=== PATIENT | female | born 1955 | race Caucasian/White ===

== ENCOUNTER 2020-10-19 17:27 | Emergency (ER) | payer MEDICARE ==
[~2020-10-19] VITALS: Ht 154.9 cm; Wt 70.0 kg
--- NOTE | 2020-10-19 17:42 | EKG ---
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
--- NOTE | 2020-10-19 18:00 | RAD ---
Single view chest dated 10/19/2020. No comparison available. Clinical data indication: Chest pain. FINDINGS: Single upright portable exam performed. Heart and mediastinal contours are within normal limits. Patc hy and linear perihilar opacities, left greater than right. No consolidation or definite pleural effu jose manuel. No pneumothorax. IMPRESSION: Patchy and linear perihilar opacities, nonspecific. Consider acute or chronic bronchial inflammatory process. Viral pneumonitis not excluded. Electronically signed by: Reyes Carmona MD (10/19/2020 5:58 PM) [id number]
[2020-10-19 18:06] LABS: BASO % 0 % (0-3); EOS # 0.1 x10^3/uL (0.0-0.7); EOS % 4 % (0-3); HEMATOCRIT 37.6 % (36.0-47.0); HEMOGLOBIN 12.5 g/dL (12.0-15.5); LYMPH # 0.7 x10^3/uL (1.0-4.8); LYMPH % 17 % (24-48); MEAN CORPUSCULAR HEMOGLOBIN 30 pg (25-35); MEAN CORPUSCULAR HGB CONC 33 g/dL (31-37); MEAN CORPUSCULAR VOLUME 89 fL (79-100); MONO # 0.4 x10^3/uL (0.0-1.1); MONO % 11 % (0-9); NEUT # 2.7 x10^3uL (1.8-7.7); NEUT % 68 % (31-73); PLATELET COUNT 46 x10^3/uL (140-400); RED BLOOD COUNT 4.21 x10^6/uL (3.50-5.40); RED CELL DISTRIBUTION WIDTH 14.9 % (11.5-14.5); WHITE BLOOD COUNT 3.9 x10^3/uL (4.0-11.0)
--- NOTE | 2020-10-19 18:15 | PHYS DOC ---
Adult General Chief Complaint Chief Complaint: CHEST PAIN HPI HPI Patient is a 65-year-old female with a known past medical history of deafness presented emergency department onset of chest pain. Patient states that approximate 10 minutes prior to arrival she had new onset of left anterior chest pain rating to the left neck and left shoulder. States that she has similar pain yesterday that spontaneously resolved. Denies any associated nausea, vomiting, fever, chills, shortness of breath, cough. Denies any recent sick contacts or travel. Denies any history of similar symptoms. No known aggravating or alleviating factors Review of Systems Review of Systems Constitutional: Denies fever or chills [] Eyes: Denies change in visual acuity, redness, or eye pain [] HENT: Denies nasal congestion or sore throat [] Respiratory: Denies cough or shortness of breath [] Cardiovascular: No additional information not addressed in HPI [] GI: Denies abdominal pain, nausea, vomiting, bloody stools or diarrhea [] : Denies dysuria or hematuria [] Musculoskeletal: Denies back pain or joint pain [] Integument: Denies rash or skin lesions [] Neurologic: Denies headache, focal weakness or sensory changes [] Endocrine: Denies polyuria or polydipsia [] All other systems were reviewed and found to be within normal limits, except as documented in this note. Physical Exam Physical Exam Constitutional: Well developed, well nourished, no acute distress, non-toxic appearance. [] HENT: Normocephalic, atraumatic, bilateral external ears normal, oropharynx moist, no oral exudates, nose normal. [] Eyes: PERRLA, EOMI, conjunctiva normal, no discharge. [] Neck: Normal range of motion, no tenderness, supple, no stridor. [] Cardiovascular:Heart rate regular rhythm, no murmur [] Lungs & Thorax: Bilateral breath sounds clear to auscultation [] Abdomen: Bowel sounds normal, soft, no tenderness, no masses, no pulsatile masses. [] Skin: Warm, dry, no erythema, no rash. [] Back: No tenderness, no CVA tenderness. [] Extremities: No tenderness, no cyanosis, no clubbing, ROM intact, no edema. [] Neurologic: Alert and oriented X 3, normal motor function, normal sensory function, no focal deficits noted. [] Psychologic: Affect normal, judgement normal, mood normal. [] EKG EKG Inverted T waves and ST depression in 1, aVL and some ST depression in aVR. Anterior leads without any ST changes. QRS and intervals normal. Radiology/Procedures Radiology/Procedures [] Heart Score Risk Factors: Risk Factors: DM, Current or recent (<one month) smoker, HTN, HLP, family history of CAD, obesity. Risk Scores: Risk Factors: DM, Current or recent (<one month) smoker, HTN, HLP, family history of CAD, obesity. Course & Med Decision Making Course & Med Decision Making Pertinent Labs and Imaging studies reviewed. (See chart for details) 65F presented with new onset of left anterior chest pain. Uncertain past medical history but history of deafness is raise concern for possible cardiovascular disease. At this time will obtain full ACS work-up. Of note on initial EKG the patient was noted to have some ST depressions in the septal leads but there is no clear criteria for STEMI activation at this time. Dragon Disclaimer Dragon Disclaimer This electronic medical record was generated, in whole or in part, using a voice recognition dictation system. Departure Departure: Referrals: NOLA MOJICA DO (PCP) BOBBY BUTT MD Oct 19, 2020 18:15
[2020-10-19 18:17] LABS: CALCIUM 8.4 mg/dL (8.5-10.1); POTASSIUM 3.9 mmol/L (3.5-5.1)
[2020-10-19 18:23] LABS: ALBUMIN/GLOBULIN RATIO 0.6 (1.0-1.7); MAGNESIUM 1.5 mg/dL (1.8-2.4); TOTAL BILIRUBIN 1.5 mg/dL (0.2-1.0); TOTAL PROTEIN 7.9 g/dL (6.4-8.2)
[2020-10-19 18:30] VITALS: BP 153/72
[2020-10-19] MEDS ORDERED: IOHEXOL 350 MG/ML 100 ML VIAL. IV ONE (19:45)
[2020-10-19] MEDS ORDERED: CONTRAST GIVEN. MC PRN (20:15)
--- NOTE | 2020-10-19 20:15 | RAD ---
Exam: CT of chest with contrast INDICATION: Shortness of breath, elevated d-dimer TECHNIQUE: Sequential axial images through the chest obtained following the administration of 75 mL o f Omni 350 IV contrast. Sagittal and coronal reformatted images were reconstructed from the axial debbie a and reviewed. 3-D reformatted images were reconstructed from the axial data and reviewed. Comparisons: Chest x-ray same day FINDINGS: Visual is portions of the thyroid are unremarkable. No enlarged mediastinal lymph nodes are identifie d. Heart size is normal. No pericardial effusion. Mild coronary artery calcifications. Thoracic aorta english s a normal course and caliber. Pulmonary artery is not enlarged. No pulmonary embolus identified with in the main, lobar or segmental pulmonary arteries. Airways are patent. Strandy opacities at lung bases bilaterally. There is mosaic attenuation of the l ungs likely related to air trapping. No consolidation or pneumothorax. There is a small left pleural effusion. Cirrhotic morphology of the liver. Spleen is enlarged. No suspicious osseous lesions or acute fractures. IMPRESSION: 1. No pulmonary embolus identified within the main, lobar or segmental pulmonary arteries. 2. Small left pleural effusion. 3. Linear bandlike opacity at lung bases likely representing atelectasis. 4. Cirrhotic morphology of the liver, and splenomegaly Exposure: One or more of the following in the visualized dose reduction techniques were utilized for this examination: 1. Automated exposure control 2. Adjustment of the MA and/or KV according to patient size 3. Use of iterative of reconstructive technique Electronically signed by: Mauricio Caicedo MD (10/19/2020 8:13 PM) [id number]
[2020-10-19 22:03] LABS: PLT ESTIMATE DECREASED (ADEQUATE)
[2020-10-19] MEDS ORDERED: HEPARIN for IV BOLUS 10,000 UNIT/10 ML VIAL. IV ONE (22:15)
[2020-10-19] MEDS ORDERED: HEPARIN 25,000UTS/250ML PREMIX 250 ML IV PRN (22:15)
[2020-10-19] MEDS ORDERED: HEPARIN for IV BOLUS 10,000 UNIT/10 ML VIAL. IV PRN (22:15)
--- NOTE | 2020-10-19 23:50 | PHYS DOC ---
Past History Past Medical History: CAD Additional Past Surgical Histo: Bladder Alcohol Use: None Adult General Chief Complaint Chief Complaint: CHEST PAIN HPI HPI Patient is a 65-year-old female who presented to the emergency department with left-sided chest pain radiating to her left arm approximately 10 to 15-minutes prior to coming to the emergency department. Care was transferred to ct at checkout. Patient denies any chest pain, shortness of breath, abdominal pain, nausea, vomiting. Denies any dyspnea on exertion, orthopnea, PND or edema. On introduction of myself to patient has not Dr. She stated she was currently having no discomfort. Review of Systems Review of Systems Constitutional: Denies fever or chills [] Eyes: Denies change in visual acuity, redness, or eye pain [] HENT: Denies nasal congestion or sore throat [] Respiratory: Denies cough or shortness of breath [] Cardiovascular: No additional information not addressed in HPI [] GI: Denies abdominal pain, nausea, vomiting, bloody stools or diarrhea [] : Denies dysuria or hematuria [] Musculoskeletal: Denies back pain or joint pain [] Integument: Denies rash or skin lesions [] Neurologic: Denies headache, focal weakness or sensory changes [] Endocrine: Denies polyuria or polydipsia [] All other systems were reviewed and found to be within normal limits, except as documented in this note. Current Medications Current Medications Current Medications Medications (Trade) Dose Ordered Sig/Shila Start Time Stop Time Status Last Admin Dose Admin Heparin Sodium (Porcine) (Heparin Sodium) 1,750 unit PRN Q6HRS PRN 10/19/20 22:15 Heparin Sodium/ Dextrose 250 ml @ 8.4 mls/hr CONT PRN 10/19/20 22:15 10/19/20 23:04 8.4 MLS/HR Info (Do NOT chart on this entry -- for MONITORING) 1 each PRN DAILY PRN 10/19/20 20:15 10/21/20 20:14 Iohexol (Omnipaque 350 Mg/ml) 100 ml 1X ONCE 10/19/20 19:45 10/19/20 20:04 DC 10/19/20 20:09 100 ML Allergies Allergies Allergies Coded Allergies Type Severity Reaction Last Updated Verified No Known Drug Allergies 10/19/20 No Physical Exam Physical Exam Constitutional: Well developed, well nourished, no acute distress, non-toxic appearance. [] HENT: Normocephalic, atraumatic, bilateral external ears normal, oropharynx moist, no oral exudates, nose normal. [] Eyes: conjunctiva normal, Neck: Normal range of motion, Cardiovascular:Heart rate regular rhythm, no murmur [] Lungs & Thorax: Bilateral breath sounds clear to auscultation [] Abdomen: soft, no tenderness, no masses, no pulsatile masses. [] Skin: Warm, dry, no erythema, no rash. [] Back: No tenderness, no CVA tenderness. [] Extremities: No tenderness, no cyanosis, no clubbing, ROM intact, no edema. [] Neurologic: Alert and oriented X 3, normal motor function, normal sensory function, no focal deficits noted. [] Psychologic: Affect normal, judgement normal, mood normal. [] Current Patient Data Vital Signs Vital Signs Date Time Temp Pulse Resp B/P (MAP) Pulse Ox O2 Delivery O2 Flow Rate FiO2 10/19/20 18:30 94 24 153/72 (99) 96 Room Air 10/19/20 17:30 98.0 Lab Results Laboratory Tests Test 10/19/20 17:58 10/19/20 20:45 White Blood Count 3.9 x10^3/uL (4.0-11.0) L Red Blood Count 4.21 x10^6/uL (3.50-5.40) Hemoglobin 12.5 g/dL (12.0-15.5) Hematocrit 37.6 % (36.0-47.0) Mean Corpuscular Volume 89 fL (79-100) Mean Corpuscular Hemoglobin 30 pg (25-35) Mean Corpuscular Hemoglobin Concent 33 g/dL (31-37) Red Cell Distribution Width 14.9 % (11.5-14.5) H Platelet Count 46 x10^3/uL (140-400) L Neutrophils (%) (Auto) 68 % (31-73) Lymphocytes (%) (Auto) 17 % (24-48) L Monocytes (%) (Auto) 11 % (0-9) H Eosinophils (%) (Auto) 4 % (0-3) H Basophils (%) (Auto) 0 % (0-3) Neutrophils # (Auto) 2.7 x10^3uL (1.8-7.7) Lymphocytes # (Auto) 0.7 x10^3/uL (1.0-4.8) L Monocytes # (Auto) 0.4 x10^3/uL (0.0-1.1) Eosinophils # (Auto) 0.1 x10^3/uL (0.0-0.7) Basophils # (Auto) 0.0 x10^3/uL (0.0-0.2) Platelet Estimate Decreased (ADEQUATE) Large Platelets Few Prothrombin Time 12.1 SEC (9.4-11.4) H Prothrombin Time INR 1.2 (0.9-1.1) H Activated Partial Thromboplast Time 29 SEC (23-33) D-Dimer (Taat) 1.25 mg/L (0.00-0.50) H Sodium Level 138 mmol/L (136-145) Potassium Level 3.9 mmol/L (3.5-5.1) Chloride Level 103 mmol/L (98-107) Carbon Dioxide Level 29 mmol/L (21-32) Anion Gap 6 (6-14) Blood Urea Nitrogen 19 mg/dL (7-20) Creatinine 1.0 mg/dL (0.6-1.0) Estimated GFR (Cockcroft-Gault) 56.0 BUN/Creatinine Ratio 19 (6-20) Glucose Level 166 mg/dL (70-99) H Calcium Level 8.4 mg/dL (8.5-10.1) L Magnesium Level 1.5 mg/dL (1.8-2.4) L Total Bilirubin 1.5 mg/dL (0.2-1.0) H Aspartate Amino Transferase (AST) 36 U/L (15-37) Alanine Aminotransferase (ALT) 22 U/L (14-59) Alkaline Phosphatase 99 U/L (46-116) Troponin I Quantitative 0.049 ng/mL (0-0.055) 0.063 ng/mL (0-0.055) H Total Protein 7.9 g/dL (6.4-8.2) Albumin 3.0 g/dL (3.4-5.0) L Albumin/Globulin Ratio 0.6 (1.0-1.7) L Lipase 172 U/L (73-393) EKG EKG EKG with a rate of 92, QRS of 90, QTc of 450, LVH with repolarization abnormality, T wave inversions in lateral leads. Abnormal EKG Radiology/Procedures Radiology/Procedures [] IMPRESSION: 1. No pulmonary embolus identified within the main, lobar or segmental pulmonary arteries. 2. Small left pleural effusion. 3. Linear bandlike opacity at lung bases likely representing atelectasis. 4. Cirrhotic morphology of the liver, and splenomegaly Exposure: One or more of the following in the visualized dose reduction techniques were utilized for this examination: 1. Automated exposure control 2. Adjustment of the MA and/or KV according to patient size 3. Use of iterative of reconstructive technique Electronically signed by: Mauricio Caicedo MD (10/19/2020 8:13 PM) [id number] Heart Score Risk Factors: Risk Factors: DM, Current or recent (<one month) smoker, HTN, HLP, family history of CAD, obesity. Risk Scores: Risk Factors: DM, Current or recent (<one month) smoker, HTN, HLP, family history of CAD, obesity. Course & Med Decision Making Course & Med Decision Making Patient is a 65-year-old female who presented to the day team with chest pain. Had abnormal EKG, and normal troponin. Given patient's history and presentation concern was for non-ST elevation OH. Faxed EKG to cardiology. Vital signs notable for hypertension. Physical exam noted above. D-dimer elevated, and CTA with no evidence of pulmonary embolism but did show some atelectasis and a small pleural effusion as well as cirrhotic liver morphology. Laboratory analysis also notable for leukopenia and thrombocytopenia as well as a mildly increased INR to 1.2. At the 3-hour emma, patient's troponin had bumped slightly and was now abnormal. Discussed findings with patient and recommended anticoagulation with heparin and transfer to [place] for continued evaluation and treatment of a non-ST elevation OH. Patient was grateful, noted understanding on a piece of paper as patient is deaf and agreed with plan of admission and transfer. [] Dragon Disclaimer Dragon Disclaimer This electronic medical record was generated, in whole or in part, using a voice recognition dictation system. Departure Departure: Impression: Primary Impression: NSTEMI (non-ST elevated myocardial infarction) Disposition: 02 DC/TRF OTHER SHORT TERM HOS Referrals: NOLA MOJICA DO (PCP) CARMINA ADAMSON MD Oct 19, 2020 23:50
[2020-10-20] MEDS ORDERED: ACETAMINOPHEN 500 MG TABLET PO ONE (01:00)
--- NOTE | 2020-10-20 12:15 | EKG ---
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
== END 2020-10-20 00:38 | disposition short-term general hospital (02) ==
LOC: ER 17:27
DX: I21.4 Non-ST elevation (NSTEMI) myocardial infarction (principal); I25.10 Atherosclerotic heart disease of native coronary artery without angina pectoris; Z20.822 Contact with and (suspected) exposure to COVID-19
CPT/HCPCS: 36415; 71045; 71275; 80053; 83690; 83735; 84484; 85025; 85379; 85610; 85730; 93005; 96365; 96375; 96376; 99285; C9803; J1644; J3010; Q9967; U0003; 99284-25

== ENCOUNTER 2020-11-11 17:32 | Emergency (ER) | payer MEDICARE ==
[~2020-11-11] VITALS: Ht 154.9 cm; Wt 66.5 kg
--- NOTE | 2020-11-11 17:57 | EKG ---
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
[2020-11-11 19:50] VITALS: BP 161/96
--- NOTE | 2020-11-11 20:32 | PHYS DOC ---
Past History Past Medical History: CAD Additional Past Medical Histor: Deaf Additional Past Surgical Histo: Bladder Alcohol Use: None Adult General Chief Complaint Chief Complaint: SHOULDER INJURY HPI HPI Patient is a 60-year-old female, deaf who presents to the emergency department with left shoulder pain. States she was in [facility] with family yesterday in a hotel, slipped and fell and hurt her left shoulder. Denies any head injuries, syncope, chest pain, shortness of breath, abdominal pain, nausea, vomiting. States she went to an outside emergency department and told that she had a small broken piece in her shoulder. States the did not do anything for her including pain medications, splinting or sling. States that pain is about 5 out of 10, dull and achy in nature and hurts when she moves her shoulder. States she is still able to move her shoulder. Review of Systems Review of Systems Review of systems otherwise unremarkable except noted in HPI Allergies Allergies Allergies Coded Allergies Type Severity Reaction Last Updated Verified No Known Drug Allergies 10/19/20 No Physical Exam Physical Exam Constitutional: Well developed, well nourished, no acute distress, non-toxic appearance. [] Neck: Normal range of motion, no tenderness, supple, no stridor. [] Abdomen: Bowel sounds normal, soft, no tenderness, Skin: Warm, dry, no erythema, no rash. [] Back: No tenderness, no CVA tenderness. [] Extremities: Patient has point tenderness around the AC joint of the left shoulder. Neurovascular exam intact. Range of motion normal but with some tenderness on movement. Neurologic: Alert and oriented X 3, normal motor function, normal sensory function, no focal deficits noted. [] Psychologic: Affect normal, judgement normal, mood normal. [] Current Patient Data Vital Signs Vital Signs Date Time Temp Pulse Resp B/P (MAP) Pulse Ox O2 Delivery O2 Flow Rate FiO2 11/11/20 19:50 97.6 89 16 161/96 (117) 98 Room Air EKG EKG [] Radiology/Procedures Radiology/Procedures []FINDINGS: Bone mineralization is normal. No acute or healed fractures. Soft tissues are unremarkable. Joint spaces are well-maintained. IMPRESSION: No acute osseous abnormality. Electronically signed by: Mauricio Caicedo MD (11/11/2020 8:30 PM) [facility] Heart Score Risk Factors: Risk Factors: DM, Current or recent (<one month) smoker, HTN, HLP, family history of CAD, obesity. Risk Scores: Risk Factors: DM, Current or recent (<one month) smoker, HTN, HLP, family history of CAD, obesity. Course & Med Decision Making Course & Med Decision Making Patient is a 65-year-old female who presents with left shoulder pain for a day Vital signs not concerning. Physical exam noted above. Patient given Tylenol, ibuprofen and ice pack, as well as sling Imaging with no acute osseous abnormalities. Discussed findings with patient and advised to follow-up tomorrow with primary care physician. Gave pain regimens for home. Advised to come back to the ED with new or concerning symptoms. Patient grateful, verbalized understanding and agreed with plan of discharge. [] Dragon Disclaimer Dragon Disclaimer This electronic medical record was generated, in whole or in part, using a voice recognition dictation system. Departure Departure: Impression: Primary Impression: Shoulder pain Disposition: 01 DC HOME SELF CARE/HOMELESS Condition: GOOD Referrals: JANA HANSON MD (PCP) Patient Instructions: RICE - Routine Care for Injuries, Lamc-ut-Solr, Shoulder Pain, [id number] Additional Instructions: Please read all the attached information. Please continue Tylenol, ibuprofen and ice as needed. Please wear your sling as needed also to prevent pain if needed. Please follow-up with your primary care physician first thing tomorrow to discuss your ED visit and set up a post ER follow-up visit. Please come back to the ED with new or concerning symptoms. CARMINA ADAMSON MD Nov 11, 2020 20:32
--- NOTE | 2020-11-11 20:33 | RAD ---
Exam: Left shoulder 3 views INDICATION: Fall, left shoulder pain radiating down arm TECHNIQUE: Frontal view of the left shoulder with internal and external rotation and transscapular Y views Comparisons: None FINDINGS: Bone mineralization is normal. No acute or healed fractures. Soft tissues are unremarkable. Joint spa krupa are well-maintained. IMPRESSION: No acute osseous abnormality. Electronically signed by: Mauricio Caicedo MD (11/11/2020 8:30 PM) [facility]
[2020-11-11] MEDS ORDERED: IBUPROFEN 600 MG TABLET. PO ONE ×2 (20:45)
[2020-11-11] MEDS ORDERED: ACETAMINOPHEN 325 MG TABLET PO ONE ×2 (20:45)
== END 2020-11-11 20:56 | disposition home or self-care (01) ==
LOC: ER 17:32
DX: M25.512 Pain in left shoulder (principal); I25.10 Atherosclerotic heart disease of native coronary artery without angina pectoris; H91.90 Unspecified hearing loss, unspecified ear; W01.0XXA Fall on same level from slipping, tripping and stumbling without subsequent striking against object, initial encounter; Y93.89 Activity, other specified; Y92.89 Other specified places as the place of occurrence of the external cause; Y99.8 Other external cause status
CPT/HCPCS: 73030; 93005; 99283

== ENCOUNTER → 2020-11-22 | Emergency (ER) | payer MEDICARE ==
[~2020-11-22] VITALS: Ht 154.9 cm; Wt 66.5 kg
[~2020-11-22] MED LIST: HYDROcodone/APAP 5/325MG 1 TAB TABLET PO ONE; IBUP600T16 PO
[2020-11-22 21:03] VITALS: BP 154/71
--- NOTE | 2020-11-22 21:18 | PHYS DOC ---
Past History Past Medical History: CAD, Hypertension Additional Past Medical Histor: Deaf (WEI VELIZ APRN) Past Surgical History: Other Additional Past Surgical Histo: Bladder (WEI VELIZ APRN) Alcohol Use: None (WEI VELIZ APRN) Adult General Chief Complaint Chief Complaint: UPPER EXTREMITY PAIN HPI HPI Patient is a 65-year-old female who presents to the emergency department complaining of needing a prescription for pain medication. Patient states she was here on 11 November 2020, was seen by an ER doctor and was sent home with a recommendation to follow-up with primary care. Patient reports he is having difficulty securing a primary care physician, was told she needed an MRI, states that she would like to have an MRI done here today. Patient denies any head injuries, syncope, chest pain, shortness of breath, abdominal pain, nausea, vomiting. Patient states that she was told at one emergency department that her shoulder was broken, states she was told that at this emergency department that there was no fracture of her shoulder. Patient states that it was recommended that she wear a sling for her discomfort. Patient rates her pain a 10/10 on a 1-10 pain scale, states it feels dull and achy in nature and hurts when she moves her shoulder around. Patient denies any other physical complaints or physical concerns. (WEI VELIZ APRN) Review of Systems Review of Systems 14 body systems of review of systems have been reviewed. See HPI for pertinent positives and negative responses, otherwise all other systems are negative, nonpertinent or noncontributory. (WEI VELIZ APRN) Allergies Allergies Allergies Coded Allergies Type Severity Reaction Last Updated Verified No Known Drug Allergies 10/19/20 No (WEI VELIZ APRN) Physical Exam Physical Exam Constitutional: Well developed, well nourished, no acute distress, non-toxic appearance. HENT: Normocephalic, atraumatic, bilateral external ears normal, oropharynx moist, no oral exudates, nose normal. Eyes: PERRLA, EOMI, conjunctiva normal, no discharge. Neck: Normal range of motion, no tenderness, supple, no stridor. Cardiovascular:Heart rate regular rhythm, no murmur Lungs & Thorax: Bilateral breath sounds clear to auscultation Abdomen: Bowel sounds normal, soft, no tenderness, no masses, no pulsatile masses. Skin: Warm, dry, no erythema, no rash. Back: No tenderness, no CVA tenderness. Extremities: No tenderness, no cyanosis, no clubbing, ROM intact, no edema. Except for left shoulder. Pain with passive range of motion, no crepitus appreciated, distal cap refill less than 2 seconds, 2+ radial pulse. Satisfactory strength. Neurovascular intact of left upper extremity. Neurologic: Alert and oriented X 3, normal motor function, normal sensory function, no focal deficits noted. Psychologic: Affect normal, judgement normal, mood normal. (WEI VELIZ APRN) Current Patient Data Vital Signs Vital Signs Date Time Temp Pulse Resp B/P (MAP) Pulse Ox O2 Delivery O2 Flow Rate FiO2 11/22/20 21:03 97.8 73 16 154/71 (98) 99 Room Air (WEI VELIZ APRN) EKG EKG [] (WEI VELIZ APRN) Radiology/Procedures Radiology/Procedures [] (WEI VELIZ APRN) Heart Score Risk Factors: Risk Factors: DM, Current or recent (<one month) smoker, HTN, HLP, family history of CAD, obesity. Risk Scores: Risk Factors: DM, Current or recent (<one month) smoker, HTN, HLP, family history of CAD, obesity. (WEI VELIZ APRN) Course & Med Decision Making Course & Med Decision Making Pertinent Labs and Imaging studies reviewed. (See chart for details) 65-year-old female, vital signs reviewed, presents emergency department complaining of needing stronger pain medications and an MRI. Patient's physical examination was consistent with previous providers physical examination done on 11 November 2020. Discussed with patient that this facility cannot perform an MRI, patient needs to have MRI secured by primary care physician. Patient will be given 2 Vicodin's in the emergency department, discharged home with a prescription for 600 mg ibuprofen 3 times daily as needed for pain, continue to wear shoulder sling, follow-up with primary care soon. Patient gave verbal understanding of discharge home instructions, follow-up with primary care this week, return to ER precautions or concerns, was discharged home without incident. (WEI VELIZ APRN) Course & Med Decision Making Did not see or evaluate patient. Agree with [employer]JECT[employer] DEVELOPER's work-up and disposition per note. (CARMINA ADAMSON MD) Dragon Disclaimer Dragon Disclaimer This electronic medical record was generated, in whole or in part, using a voice recognition dictation system. (WEI VELIZ APRN) Departure Departure: Impression: Primary Impression: Left shoulder pain Additional Impression: Encounter for medication refill Disposition: 01 DC HOME SELF CARE/HOMELESS Condition: GOOD Referrals: JANA HANSON MD (PCP) Additional Instructions: Please follow-up with a primary care doctor, take prescribed pain medications as directed, return to the emergency department for worsening symptoms or other concerns. EMERGENCY DEPARTMENT GENERAL DISCHARGE INSTRUCTIONS Thank you for coming to [facility] (ED) today and trusting us with you care. We trust that you had a positivie experience in our Emergency Department. If you wish to speak to the department management, you may call the director at [phone]. YOUR FOLLOW UP INSTRUCTIONS ARE FOLLOWS: 1. Do you have a private Doctor? If you do not have a private doctor, please ask for a resource list of physicians or clinics that may be able to assist you with follow up care. 2. The Emergency Physician has interpreted your x-rays. The X-Ray specialist will also review them. If there is a change in the findings, you will be notified in 48 hours when at all possible. 3. A lab test or culture has been done, your results will be reviewed and you will be notified if you need a change in treatment. ADDITIONAL INSTRUCTIONS AND INFORMATION: 1. Your care today has been supervised by a physician who is specially trained in emergency care. Many problems require more than one evaluation for a complete diagnosis and treatment. We recommend that you schedule your follow up appointment as recommended to ensure complete treatment of you illness or injury. If you are unable to obtain follow up care and continue to have a problem, or if your condition worsens, we recommend that you return to the ED. 2. We are not able to safely determine your condition over the phone nor are we able to give sound medical advice over the phone. For these safety reasons, if you call for medical advice we will ask you to come to the ED for further evaluation. 3. If you have any questions regarding these discharge instructions please call the ED at [phone]. SAFETY INFORMATION: In the interest of safety, wellness, and injury prevention; we encourage you to wear your sealbelt, if you smoke; quite smoking, and we encourage family to use a protective helmet for bicycling and other sporting events that present an increased risk for head injury. IF YOUR SYMPTOMS WORSEN OR NEW SYMPTOMS DEVELOP, OR YOU HAVE CONCERNS ABOUT YOUR CONDITION; OR IF YOUR CONDITION WORSENS WHILE YOU ARE WAITING FOR YOUR FOLLOW UP APPOINTMENT; EITHER CONTACT YOUR PRIMARY CARE DOCTOR, THE PHYSICIAN WHOSE NAME AND NUMBER YOU WERE GIVEN, OR RETURN TO THE ED IMMEDIATELY. Scripts Ibuprofen (IBUPROFEN) 600 Mg Tablet 600 MG PO TID PRN PRN for PAIN, #30 TAB 0 Refills Prov: WEI VELIZ APRN 11/22/20 Problem Qualifiers Primary Impression: Left shoulder pain Chronicity: unspecified Qualified Codes: M25.512 - Pain in left shoulder WEI VELIZ APRN Nov 22, 2020 21:18 CARMINA ADAMSON MD Nov 22, 2020 21:54
== END ==
LOC: ER 20:59
DX: M25.512 Pain in left shoulder (principal); Z76.0 Encounter for issue of repeat prescription; I25.10 Atherosclerotic heart disease of native coronary artery without angina pectoris; I10 Essential (primary) hypertension
CPT/HCPCS: 99283

== ENCOUNTER 2020-12-20 03:35 | Emergency (ER) | payer MEDICARE ==
[~2020-12-20] VITALS: Ht 154.9 cm; Wt 66.5 kg
[2020-12-20 03:35] VITALS: BP 113/59
[~2020-12-20 03:35] MED LIST changes: -HYDROcodone/APAP 5/325MG 1 TAB TABLET PO ONE
--- NOTE | 2020-12-20 04:00 | PHYS DOC ---
Past History Past Medical History: Anxiety, Arthritis, CAD, Hypertension, [place] Additional Past Medical Histor: Deaf (SELAM BECK MD) Past Surgical History: Other Additional Past Surgical Histo: Bladder (SELAM BECK MD) Alcohol Use: None (SELAM BECK MD) General Adult EDM: Chief Complaint: GENERALIZED BODY ACHES HPI: HPI: ".. I tripped .. and fell... last monday... " .." .. I hurt every where..." Pt. wrote Patient is a 65 year old female who presents with above hx and complaints of trip and fall last monday. Pt. has contusion to central chest, abdomen, Rt. knee, Lt. shoulder, and bilateral ankles. Pt. has been ambulatory, but not marked improvement of pain. Pt. has past medical history of deafness, arthritis, [place] non Stemi 10/2020, pleural effusions, atelectasis, cirrhotic liver, splenomegaly, stress urinary incontinence, hypertension, dysrhythmia, and LVH. Patient normally follows with Dr. Navarro. No recent travel. No specific ill contacts. Patient lives alone. Patient reportedly tripped and fell on Monday. 18 December. Patient does have findings of contusion and ecchymosis and abrasions and areas of concern. Patient is right-hand dominant. Patient is ambulatory which is somewhat guarded because of right knee pain. Patient is able to do straight leg lift. Does have edema of right patella and notable abrasion. Does have bilateral foot and ankle tenderness with ecchymosis and edema. Patient has pain in left shoulder and appears to have some rotator cuff weakness. (SELAM BECK MD) Review of Systems: Review of Systems: Constitutional: Denies fever or chills Eyes: Denies change in visual acuity HENT: Denies nasal congestion or sore throat Respiratory: Denies cough or shortness of breath Cardiovascular: Planes of central chest pain GI: Complains of mid abdominal pain, nausea,. Denies vomiting, bloody stools or diarrhea : Denies dysuria Musculoskeletal: Complains of left shoulder pain, right knee pain, bilateral foot and ankle pain. Integument: Denies rash Neurologic: Denies headache, focal weakness or sensory changes Endocrine: Denies polyuria or polydipsia Lymphatic: Denies swollen glands Psychiatric: Denies depression or anxiety (SELAM BECK MD) Family History: Family History: Noncontributory to presentation (SELAM BECK MD) Current Medications: Current Meds: See nursing for home medications (SELAM BECK MD) Allergies: Allergies: Allergies Coded Allergies Type Severity Reaction Last Updated Verified No Known Drug Allergies 10/19/20 No (SELAM BECK MD) Physical Exam: PE: Constitutional: Moderate acute distress, non-toxic appearance. [] HENT: Normocephalic, bilateral external ears normal, oropharynx moist, no oral exudates, nose normal. [] Eyes: PERRLA, EOMI, conjunctiva normal, no discharge. [] Neck: Normal range of motion, no tenderness, supple, no stridor. [] Cardiovascular:Heart rate regular rhythm, no murmur [monitor shows a sinus rhythm with LVH type changes. Lungs & Thorax: Bilateral breath sounds equal at apex on auscultation [] chest wall tenderness on palpation of anterior chest wall Abdomen: Bowel sounds normal, soft, upper abdomen tenderness, no masses, no pulsatile masses. Old surgery scar Skin: Warm, dry, no erythema, no rash. Multiple contusions and abrasions most significant are right knee and bilateral ankles Back: Mild lumbar tenderness, no CVA tenderness. [] Extremities: Left shoulder, right knee, bilateral ankles tenderness, no cyanosis, no clubbing, ROM guarded due to pain, right knee and bilateral ankles edema. [] Neurologic: Alert and oriented X 3, moves all extremities on request, does have distal sensory, is ambulatory with a somewhat guarded gait., no focal deficits noted. History of chronic deafness Psychologic: Affect anxious, judgement normal, mood normal. [] (SELAM BECK MD) EKG: EKG: My interpretation of EKG shows a sinus rhythm at 76 bpm does have prolonged SC interval at 238 ms. Does have leftward axis. LVH changes. But no findings of acute STEMI with contralateral changes there is inversion of the T wave in lead I and II there is some J-point elevation in V1 to and 3 and 4 and some contralateral changes in leads II and III. Would consider this an abnormal EKG [] (SELAM BECK MD) Radiology/Procedures: Radiology/Procedures: [] (SELAM BECK MD) Radiology/Procedures: PROCEDURE: CT ANGIOGRAPHY CHEST CT angiography chest with contrast PQRS statement: CT scans at this facility use dose reduction including either automated exposure control, iterative reconstructions, and /or weight based radiation dosing via mA and kV modification when appropriate to reduce radiation dose to as low as reasonably achievable. HISTORY: Chest pain. Dyspnea. Contrast: 75 mL Omnipaque 350 intravenous contrast. HISTORY: Chest pain and dyspnea. Elevated d-dimer. FINDINGS: Subcentimeter hypodensity right kidney too small to characterize most likely small cyst. Liver cirrhosis. Dense calcifications as well as thickening at the aortic valve may increase the probability of valvular stenosis. Mild cardiomegaly. There may be left ventricular myocardial hypertrophy. Esophagus unremarkable. No adenopathy in the chest. 1 cm hypodense left thyroid lobe nodule. At the left major fissure bridging between the upper and lower lobes there is a solid oval 11 mm nodule image 49. There is mild bronchial wall thickening may indicate bronchitis. Mild mosaic attenuation of the lungs could indicate some areas of air trapping from asthma or bronchiolitis. No pleural effusions. IMPRESSION: 1. No pulmonary artery emboli. 2. Bronchial wall thickening likely bronchitis. Mosaic attenuation of the lungs with scattered lucencies which could indicate air trapping from asthma exacerbation or bronchiolitis. 3. 11 mm solid pulmonary nodule of the left lung. Further assessment with PET scan imaging, versus follow-up CT imaging in 3 months may be of benefit. Given the presence of this nodule at a fissure there may be a higher risk for pneumothorax after needle biopsy. 4. Liver cirrhosis. 5. Thickening and calcifications at the aortic valve may indicate a higher probability of valvular stenosis. There may also be left ventricular myocardial hypertrophy of the heart which can be associated with aortic valve stenosis, although can also be observed with long-standing hypertension and hypertrophic cardiomyopathy. Electronically signed by: Fabian Mojica MD (12/20/2020 6:36 AM) [facility] (ARLEEN DOVER DO) Heart Score: HEART Score for Chest Pain: HEART Score for Chest Pain Response (Comments) Value History Moderately Suspicious 1 ECG Nonspecific Repolarizatio 1 Age >45 - < 65 1 Risk Factors 1 or 2 Risk Factors 1 Total 4 Risk Factors: Risk Factors: DM, Current or recent (<one month) smoker, HTN, HLP, family history of CAD, obesity. Risk Scores: Score 0 - 3: 2.5% MACE over next 6 weeks - Discharge Home Score 4 - 6: 20.3% MACE over next 6 weeks - Admit for Clinical Observation Score 7 - 10: 72.7% MACE over next 6 weeks - Early Invasive Strategies (SELAM BECK MD) C/O Chest Pain: No (ARLEEN DOVER DO) Course & Med Decision Making: Course & Med Decision Making Pertinent Labs and Imaging studies reviewed. (See chart for details) Impression: 1. Trip and Fall 2., Multiple contusions 3. Sprain/ Strain Rt Knee and bilateral ankles 4. Deaf 5. Thrombocytopenia 6. Hx. Non-Stemi [place] 10/22 [] (SELAM BECK MD) Course & Med Decision Making I assumed care of patient after comprehensive signout by off going physician. I reviewed entirety of ER work-up thus far. I personally saw and evaluated patient myself and repeated aspects of history and physical exam. CT angio pending at time of shift change. This resulted, concerning for cardiovascular disease, left-sided lung nodule, liver cirrhosis and suspect bronchitis. I reviewed these findings with patient using notes as patient is deaf I discussed need for close outpatient follow-up with PCP, I advised her to call PCP tomorrow to be seen in upcoming 72-hour for repeat evaluation. She will need to discuss next steps of care regarding her pulmonary nodule another chronic findings. Continued supportive care for contusion and other musculoskeletal complaints advised in the meantime. Strict return precautions were discussed with good understanding by patient. All questions and concerns addressed prior to ER departure in stable condition (ARLEEN DOVER DO) Dragon Disclaimer: Marisel Disclaimer: This electronic medical record was generated, in whole or in part, using a voice recognition dictation system. (SELAM BECK MD) Departure Departure: Impression: Primary Impression: Fall Additional Impressions: Multiple contusions Liver cirrhosis Pulmonary nodule, left Disposition: 01 DC HOME SELF CARE/HOMELESS Condition: STABLE Referrals: JANA HANSON MD (PCP) Patient Instructions: Contusion, Fall Prevention and Home Safety Additional Instructions: It is likely that you have experienced a sprain/strain/contusion that is causing you pain. The best treatment for this injury is continued range of motion (non weight bearing) to prevent a frozen joint. A Rest, Ice, Compression, Elevation (RICE) strategy may also be helpful in the acute phase. I would advise taking an NSAID and/or Tylenol as needed for pain. I also disclosed findings on the CT imaging of your chest such as the pulmonary nodule. You will need to call your primary care doctor tomorrow to discuss ER visit today, I advise he be seen in upcoming 72 hours for repeat evaluation and to review ER visit today. Please return to the ED if new or worrisome symptoms arise prior to outpatient follow- up. Dragon Disclaimer This chart was dictated in whole or in part using Voice Recognition software in a busy, high-work load, and often noisy Emergency Department environment. It may contain unintended and wholly unrecognized errors or omissions. (SELAM BECK MD) SELAM BECK MD Dec 20, 2020 04:00 ARLEEN DOVER DO Dec 20, 2020 06:37
[2020-12-20 04:43] LABS: BASO % 0 % (0-3); EOS # 0.2 x10^3/uL (0.0-0.7); EOS % 5 % (0-3); HEMATOCRIT 37.2 % (36.0-47.0); HEMOGLOBIN 12.7 g/dL (12.0-15.5); LYMPH # 0.8 x10^3/uL (1.0-4.8); LYMPH % 21 % (24-48); MEAN CORPUSCULAR HEMOGLOBIN 30 pg (25-35); MEAN CORPUSCULAR HGB CONC 34 g/dL (31-37); MEAN CORPUSCULAR VOLUME 88 fL (79-100); MONO # 0.6 x10^3/uL (0.0-1.1); MONO % 14 % (0-9); NEUT # 2.4 x10^3uL (1.8-7.7); NEUT % 60 % (31-73); PLATELET COUNT 44 x10^3/uL (140-400); RED BLOOD COUNT 4.22 x10^6/uL (3.50-5.40); WHITE BLOOD COUNT 4.1 x10^3/uL (4.0-11.0)
[2020-12-20] MEDS ORDERED: MORPHINE SULFATE 10 MG/ML SYRINGE. SQ ONE (04:45)
[2020-12-20] MEDS ORDERED: IV RINGERS SOLUTION,LACTATED 1,000 ML IV SCH (04:45)
[2020-12-20 05:05] LABS: PLT ESTIMATE DECREASED (ADEQUATE)
[2020-12-20 05:07] LABS: BILIRUBIN,URINE NEG (NEG); CLARITY,URINE CLEAR; COLOR,URINE YELLOW; GLUCOSE,URINE NEG (NEG); NITRITE,URINE NEG (NEG)
[2020-12-20 05:08] LABS: BACTERIA,URINE FEW /HPF (0-FEW); RBC,URINE 0 /HPF (0-2); SQUAMOUS EPITHELIAL CELL,UR OCC /LPF
[2020-12-20 05:15] LABS: BARBITURATES NEG (NEG); BENZODIAZEPINES NEG (NEG); CANNABINOIDS NEG (NEG); COCAINE NEG (NEG); METHADONE NEG (NEG); OPIATES POS (NEG); PHENCYCLIDINE NEG (NEG)
[2020-12-20 05:18] LABS: CALCIUM 8.6 mg/dL (8.5-10.1); CREATININE 1.2 mg/dL (0.6-1.0); GFR 45.4
[2020-12-20 05:18] LABS: AMPHETAMINE/METHAMPHETAMINE NEG (NEG)
[2020-12-20 05:31] LABS: ALBUMIN 2.8 g/dL (3.4-5.0); DIRECT BILIRUBIN 0.5 mg/dL (0.0-0.2); MAGNESIUM 1.5 mg/dL (1.8-2.4); TOTAL BILIRUBIN 1.6 mg/dL (0.2-1.0); TOTAL PROTEIN 7.3 g/dL (6.4-8.2)
--- NOTE | 2020-12-20 05:57 | RAD ---
AP, lateral and oblique x-rays bilateral ankles HISTORY: Fall, pain. FINDINGS: No fracture. No dislocation. Enthesophytes at the posterior calcaneus bilaterally. Small sp ur of the left plantar calcaneus. Lateral ankle soft tissue edema. IMPRESSION: No acute osseous injury. AP, lateral and oblique x-rays bilateral feet HISTORY: Fall, pain. FINDINGS: Small bone cyst or erosion at the base of the left third toe proximal phalanx. No fracture. No dislocation. Enthesophyte at the posterior calcaneus bilaterally. Small spur the plantar calcaneu s of the left foot. IMPRESSION: No acute osseous injury. Right knee x-rays 4 views HISTORY: Fall, pain. FINDINGS: No fracture. No dislocation. Mild lateral meniscus chondrocalcinosis. IMPRESSION: No acute osseous injury. Left shoulder AP internal/external and scapular x-rays 3 views HISTORY: Fall, left shoulder. FINDINGS: Old healed posttraumatic deformity proximal humerus as well as of the lateral clavicle. No acute fracture. No dislocation. Soft tissues unremarkable. IMPRESSION: No acute osseous injury. Old healed posttraumatic deformity of the shoulder as described above. PA chest and AP upright supine abdomen x-rays HISTORY: Fall, pain. FINDINGS: Mild cardiomegaly. Old healed left rib deformities. No pulmonary opacities or pleural effus ions. No pneumoperitoneum. There is a mild volume of stool throughout the large bowel. No dilated bow el loops or abnormal air-fluid levels to suggest ileus or obstruction with mild gas throughout the la rge and small bowel present. There appears to be splenomegaly the spleen extending below the costal m argin to just above the iliac crest. IMPRESSION: No bowel obstruction. No acute process in the chest. Suspected splenomegaly. Electronically signed by: Fabian Mojica MD (12/20/2020 5:55 AM) [facility]
[2020-12-20] MEDS ORDERED: CONTRAST GIVEN. MC PRN (06:15)
[2020-12-20] MEDS ORDERED: IOHEXOL 350 MG/ML 100 ML VIAL. IV ONE (06:15)
--- NOTE | 2020-12-20 06:38 | RAD ---
CT angiography chest with contrast PQRS statement: CT scans at this facility use dose reduction including either automated exposure cont rol, iterative reconstructions, and /or weight based radiation dosing via mA and kV modification when appropriate to reduce radiation dose to as low as reasonably achievable. HISTORY: Chest pain. Dyspnea. Contrast: 75 mL Omnipaque 350 intravenous contrast. HISTORY: Chest pain and dyspnea. Elevated d-dimer. FINDINGS: Subcentimeter hypodensity right kidney too small to characterize most likely small cyst. Li lisa cirrhosis. Dense calcifications as well as thickening at the aortic valve may increase the probab ility of valvular stenosis. Mild cardiomegaly. There may be left ventricular myocardial hypertrophy. Esophagus unremarkable. No adenopathy in the chest. 1 cm hypodense left thyroid lobe nodule. At the l eft major fissure bridging between the upper and lower lobes there is a solid oval 11 mm nodule image 49. There is mild bronchial wall thickening may indicate bronchitis. Mild mosaic attenuation of the lungs could indicate some areas of air trapping from asthma or bronchiolitis. No pleural effusions. IMPRESSION: 1. No pulmonary artery emboli. 2. Bronchial wall thickening likely bronchitis. Mosaic attenuation of the lungs with scattered lucenc ies which could indicate air trapping from asthma exacerbation or bronchiolitis. 3. 11 mm solid pulmonary nodule of the left lung. Further assessment with PET scan imaging, versus fo llow-up CT imaging in 3 months may be of benefit. Given the presence of this nodule at a fissure ther e may be a higher risk for pneumothorax after needle biopsy. 4. Liver cirrhosis. 5. Thickening and calcifications at the aortic valve may indicate a higher probability of valvular st enosis. There may also be left ventricular myocardial hypertrophy of the heart which can be associate d with aortic valve stenosis, although can also be observed with long-standing hypertension and hyper trophic cardiomyopathy. Electronically signed by: Fabian Mojica MD (12/20/2020 6:36 AM) [facility]
--- NOTE | 2020-12-21 01:19 | EKG ---
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
[2020-12-23 12:08] LABS: HCV ULTRA QUANT PCR HCV Not Detected IU/mL (.)
== END 2020-12-20 07:34 | disposition home or self-care (01) ==
LOC: ER 03:35
DX: S83.91XA Sprain of unspecified site of right knee, initial encounter (principal); S93.402A Sprain of unspecified ligament of left ankle, initial encounter; S93.401A Sprain of unspecified ligament of right ankle, initial encounter; S40.012A Contusion of left shoulder, initial encounter; H91.90 Unspecified hearing loss, unspecified ear; D69.6 Thrombocytopenia, unspecified; R10.10 Upper abdominal pain, unspecified; F41.9 Anxiety disorder, unspecified; M19.90 Unspecified osteoarthritis, unspecified site; I25.10 Atherosclerotic heart disease of native coronary artery without angina pectoris; I10 Essential (primary) hypertension; I25.2 Old myocardial infarction; W01.0XXA Fall on same level from slipping, tripping and stumbling without subsequent striking against object, initial encounter; Y93.89 Activity, other specified; Y92.89 Other specified places as the place of occurrence of the external cause; Y99.8 Other external cause status
CPT/HCPCS: 36415; 71275; 73030; 73564; 73610; 73630; 74022; 80048; 80076; 80307; 81001; 82550; 83690; 83735; 83880; 84443; 84484; 85025; 85379; 85610; 85730; 86705; 86709; 86803; 87086; 87340; 87522; 93005; 96372; 99284; J2270; Q9967

== ENCOUNTER 2021-01-13 12:42 | Emergency (ER) | payer MEDICARE ==
[~2021-01-13] VITALS: Ht 154.9 cm; Wt 61.0 kg
[2021-01-13] MEDS ORDERED: IOHEXOL 240 MG/ML 50ML VIAL. PO ONE (13:30)
[2021-01-13] MEDS ORDERED: IOHEXOL 300 MG/ML 75 ML VIAL. IV ONE (13:30)
[2021-01-13 13:40] VITALS: BP 160/74
[2021-01-13] MEDS ORDERED: CONTRAST GIVEN. MC PRN (13:45)
[2021-01-13 13:46] LABS: BASO % 0 % (0-3); EOS # 0.1 x10^3/uL (0.0-0.7); EOS % 3 % (0-3); HEMATOCRIT 39.4 % (36.0-47.0); HEMOGLOBIN 13.2 g/dL (12.0-15.5); LYMPH # 0.6 x10^3/uL (1.0-4.8); LYMPH % 16 % (24-48); MEAN CORPUSCULAR HEMOGLOBIN 31 pg (25-35); MEAN CORPUSCULAR HGB CONC 34 g/dL (31-37); MEAN CORPUSCULAR VOLUME 91 fL (79-100); MONO # 0.4 x10^3/uL (0.0-1.1); MONO % 11 % (0-9); NEUT # 2.6 x10^3uL (1.8-7.7); NEUT % 70 % (31-73); PLATELET COUNT 42 x10^3/uL (140-400); RED BLOOD COUNT 4.32 x10^6/uL (3.50-5.40); RED CELL DISTRIBUTION WIDTH 16.3 % (11.5-14.5); WHITE BLOOD COUNT 3.7 x10^3/uL (4.0-11.0)
--- NOTE | 2021-01-13 13:49 | EKG ---
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
--- NOTE | 2021-01-13 13:54 | PHYS DOC ---
Past History Past Medical History: Anxiety, Arthritis, CAD, Hypertension, CO Additional Past Medical Histor: Deaf Past Surgical History: Other Additional Past Surgical Histo: Bladder Alcohol Use: None Adult General Chief Complaint Chief Complaint: GI PROBLEM HPI HPI Patient is a 65-year-old female who presents to the emergency department via EMS for left ankle pain that started yesterday. Patient denies any injury to her left ankle. Patient also complains of left shoulder pain left side pain left hip pain leg pain stating "I basically hurt from my shoulder down to my foot on the left side. Patient denies any injury. Patient also complains of lower left and lower right abdominal pains, low back pains, denies any injury to her abdomen or back. Patient reports having a cough, wheezing, shortness of breath. Patient denies any recent fever or chills. Patient reports her pain and 8- 10/10 on a 1-10 pain scale. Patient reports a past medical history of deafness, and gallbladder surgery. Patient denies any headaches, urinary problems, constipation or nausea vomiting or diarrhea. Patient states "I feel bad, something is wrong with me, feel like I want to "patient denies recent exposure to the COVID-19 virus, patient denies any other physical complaints or physical concerns. Patient states that she sees ULICES Weiss for her primary care provider, states she is only on 5/325 [place] for home medications. Patient states she lives at home by herself, denies any recent travel. Patient has history of deafness, facility electrical design technician was used for communication with patient. Patient has a past medical history of deafness, arthritis, non-STEMI CO in October 2020, pleural effusions, atelectasis, cirrhotic liver, splenomegaly, stress incontinence, hypertension, dysrhythmias, and LVH. Review of Systems Review of Systems 14 body systems of review of systems have been reviewed. See HPI for pertinent positives and negative responses, otherwise all other systems are negative, nonpertinent or noncontributory. Current Medications Current Medications Patient reports her only home medication is [place] 5/325. I called her primary pharmacy [facility] here in [facility] who report only one medication of [place] 5/325 mg prescribed by ULICES Weiss Current Medications Medications (Trade) Dose Ordered Sig/Shila Start Time Stop Time Status Last Admin Dose Admin Info (Do NOT chart on this entry -- for MONITORING) 1 each PRN DAILY PRN 01/13/21 13:45 01/15/21 13:44 Iohexol (Omnipaque 240 Mg/ml) 50 ml 1X ONCE 01/13/21 13:30 01/13/21 13:32 DC Iohexol (Omnipaque 300 Mg/ml) 75 ml 1X ONCE 01/13/21 13:30 01/13/21 13:32 DC Allergies Allergies Allergies Coded Allergies Type Severity Reaction Last Updated Verified No Known Drug Allergies 12/20/20 No Physical Exam Physical Exam Constitutional: Well developed, well nourished, no acute distress, non-toxic appearance. 64-year-old female in no apparent distress, had steady ambulatory gait from EMS gurney to bed. Patient's complaint of pain exceeds patient's physical presentation. HENT: Normocephalic, atraumatic, bilateral external ears normal, oropharynx moist, no oral exudates, nose normal. Eyes: PERRLA, EOMI, conjunctiva normal, no discharge. Neck: Normal range of motion, no tenderness, supple, no stridor. Cardiovascular:Heart rate regular rhythm, no murmur, heart sounds S1-S2. Lungs & Thorax: Bilateral breath sounds clear to auscultation, no adventitious lung sounds appreciated. Abdomen: Bowel sounds normal, soft, no masses, no pulsatile masses. Negative rebound tenderness, negative psoas sign, negative McBurney's point tenderness, negative Kinney sign, generalized abdominal pain all 4 quadrants to palpation, old surgical scar well-healed. No ecchymotic areas noted of the abdomen. Skin: Warm, dry, no erythema, no rash. Back: No CVA tenderness on the left or right, mild tenderness to the lumbar area, no midline spinal tenderness appreciated. Extremities: No tenderness, no cyanosis, no clubbing, ROM intact, no edema. Distal cap refill less than 2 seconds, left ankle mild swelling +1 nonpitting edema, distal cap refill less than 2 seconds, 2+ dorsalis pedis/posterior tibial pulse, no loss of sensation appreciated, no crepitus appreciated, no deformity appreciated. No other swelling appreciated of the left lower extremity or right lower extremity. Neurologic: Alert and oriented X 3, normal motor function, normal sensory function, no focal deficits noted. Psychologic: Affect normal, judgement normal, mood normal. Current Patient Data Lab Results Laboratory Tests Test 01/13/21 13:27 01/13/21 14:35 White Blood Count 3.7 x10^3/uL Red Blood Count 4.32 x10^6/uL Hemoglobin 13.2 g/dL Hematocrit 39.4 % Mean Corpuscular Volume 91 fL Mean Corpuscular Hemoglobin 31 pg Mean Corpuscular Hemoglobin Concent 34 g/dL Red Cell Distribution Width 16.3 % Platelet Count 42 x10^3/uL Neutrophils (%) (Auto) 70 % Lymphocytes (%) (Auto) 16 % Monocytes (%) (Auto) 11 % Eosinophils (%) (Auto) 3 % Basophils (%) (Auto) 0 % Neutrophils # (Auto) 2.6 x10^3uL Lymphocytes # (Auto) 0.6 x10^3/uL Monocytes # (Auto) 0.4 x10^3/uL Eosinophils # (Auto) 0.1 x10^3/uL Basophils # (Auto) 0.0 x10^3/uL Platelet Estimate Decreased Urine Collection Type Unknown Urine Color Magy Urine Clarity Clear Urine pH 7.5 Urine Specific [place] 1.020 Urine Protein Neg Urine Glucose (UA) 100 mg/dL Urine Ketones (Stick) Neg mg/dL Urine Blood Mod Urine Nitrite Neg Urine Bilirubin Small Urine Urobilinogen Dipstick >=8.0 mg/dL Urine Leukocyte Esterase Neg Urine RBC 3-5 /HPF Urine WBC 0 /HPF Urine Bacteria 0 /HPF Sodium Level 136 mmol/L Potassium Level 3.7 mmol/L Chloride Level 103 mmol/L Carbon Dioxide Level 28 mmol/L Anion Gap 5 Blood Urea Nitrogen 12 mg/dL Creatinine 1.0 mg/dL Estimated GFR (Cockcroft-Gault) 56.0 BUN/Creatinine Ratio 12 Glucose Level 137 mg/dL Calcium Level 8.4 mg/dL Total Bilirubin 3.2 mg/dL Aspartate Amino Transf (AST/SGOT) 48 U/L Alanine Aminotransferase (ALT/SGPT) 31 U/L Alkaline Phosphatase 93 U/L Troponin I Quantitative 0.040 ng/mL [id number] Natriuretic Peptide 1006 pg/mL Total Protein 8.6 g/dL Albumin 3.3 g/dL Albumin/Globulin Ratio 0.6 Lipase 122 U/L Urine Opiates Screen Neg Urine Methadone Screen Neg Urine Barbiturates Neg Urine Phencyclidine Screen Neg Urine Amphetamine/Methamphetamine Neg Urine Benzodiazepines Screen Neg Urine Cocaine Screen Neg Urine Cannabinoids Screen Pos Urine Ethyl Alcohol Neg D-Dimer (Tata) 0.49 mg/L Current Medications Medications (Trade) Dose Ordered Sig/Shila Route PRN Reason Start Time Stop Time Status Last Admin Dose Admin Iohexol (Omnipaque 240 Mg/ml) 50 ml 1X ONCE PO 01/13/21 13:30 01/13/21 13:32 DC Iohexol (Omnipaque 300 Mg/ml) 75 ml 1X ONCE IV 01/13/21 13:30 01/13/21 13:32 DC Info (Do NOT chart on this entry -- for MONITORING) 1 each PRN DAILY PRN MC SEE COMMENTS 01/13/21 13:45 01/15/21 13:44 Iohexol (Omnipaque 350 Mg/ml) 100 ml 1X ONCE IV 01/13/21 14:15 01/13/21 14:16 DC 01/13/21 14:15 Morphine Sulfate (Morphine 4mg Syringe) 4 mg 1X ONCE IV 01/13/21 15:00 01/13/21 15:01 DC 01/13/21 15:04 Morphine Sulfate (Morphine 4mg Syringe) 4 mg 1X ONCE IV 01/13/21 15:30 01/13/21 15:31 DC 01/13/21 16:03 EKG EKG EKG performed at 1333 by house respiratory therapy staff, shows a heart rate of 90 bpm without ectopy, CT interval 0.234, QTc interval 0.447, no acute STEMI, no ACS, no acute ischemia appreciated. EKG interpreted by ED attending physician Dr. Ferrari. Radiology/Procedures Radiology/Procedures PATIENT: XIMENA EASTMAN ACCOUNT: [id number] : 1955 LOCATION: ER AGE: 65 SEX: F EXAM STATUS: REG ER ORD. PHYSICIAN: WEI VELIZ APRN REASON: PAIN AND SWELLING PROCEDURE: ANKLE LEFT 3V EXAM: XR EXAM OF ANKLE_LEFT 3V 01/13/2021 1:41 PM CLINICAL INDICATION: Pain and swelling COMPARISON: Left ankle radiograph 12/20/2020 TECHNIQUE: 3 views of the left ankle FINDINGS: No acute fracture. Alignment is normal. Ankle mortise is symmetric and talar dome is intact. There are small calcaneal enthesophytes. Mild diffuse soft tissue swelling. IMPRESSION: No acute osseous abnormality. Mild diffuse soft tissue swelling. Electronically signed by: Ekta Ralph MD (01/13/2021 1:51 PM) [id number] DICTATED AND SIGNED BY: EKTA RALPH MD DATE: 01/13/21 1348 CC: WEI VELIZ APRN; GILMA LUCIO ~MTH0 0 PATIENT: XIMENA EASTMAN ACCOUNT: [id number] : 1955 LOCATION: ER AGE: 65 SEX: F EXAM STATUS: REG ER ORD. PHYSICIAN: WEI VELIZ APRN REASON: ABDOMEN PAIN WITH SHORT OF BREATH PROCEDURE: CT ANGIO CHEST W ABD PEL W/ EXAM: CT CHEST WITH CONTRAST - PULMONARY ANGIOGRAM CT ABDOMEN AND PELVIS WITH CONTRAST INDICATION: Abdominal pain with shortness of breath. COMPARISON: CTA chest 12/20/2020 TECHNIQUE: Helical CT of the chest abdomen, and pelvis performed after the administration of 60 mm Omnipaque [address] of the chest was timed for angiographic evaluation of the pulmonary arteries per PE protocol. Coronal and sagittal 3D MIP reformations were obtained of the chest. Sagittal and coronal reformats were obtained of the abdomen and pelvis. One or more of the following individualized dose reduction techniques were utilized for this examination: 1. Automated exposure control 2. Adjustment of the mA and/or kV according to patient size 3. Use of iterative reconstruction technique. FINDINGS: CHEST: Pulmonary Arteries: Contrast bolus is adequate. There is no acute pulmonary embolism. Heart/Systemic Vasculature: Heart is normal in size. No pericardial effusion. There are aortic valve calcifications and thickening. Mediastinum and han: There are small mediastinal and hilar lymph nodes. Mild diffuse esophageal wall thickening.. Lungs and pleura: Unchanged 11 mm pulmonary nodule along the left major fissure (image 52 series 4). There is mild airway wall thickening and interlobular septal thickening throughout the lungs. Small left greater than right pleural effusions and bibasilar atelectasis. Neck/Axilla/Body Wall: There is a 9 mm hypodense lesion in the left thyroid lobe. There are numerous small left axillary lymph nodes, unchanged. Bones: No acute osseous abnormality. ABDOMEN AND PELVIS: Liver: Nodular contour of the liver. Portal veins are enlarged. The umbilical vein is recanalized there is a large collateral vessel in the anterior abdomen extending to the left lower quadrant. There are esophageal and paraesophageal varices. Gallbladder/Biliary Tree: Gallbladder is not visualized. Bile ducts are normal. Pancreas: Unremarkable. Spleen: Spleen is enlarged measuring 17 cm in CC length. Adrenal Glands: Normal. Kidneys/Ureters/Bladder: Kidneys are normal in size and enhance symmetrically. There is mass effect on the left kidney from the enlarged spleen. There is a 1.4 cm simple cyst in the inferior left renal pole. No hydronephrosis. Ureters and bladder are unremarkable. Reproductive Organs: Uterus is surgically absent. The ovaries are prominent. Stomach, small bowel, and colon: The stomach is normal. There is no small bowel obstruction. Colon is unremarkable. Vasculature: Abdominal aorta is normal in caliber. Lymph Nodes: No lymphadenopathy. Peritoneum and retroperitoneum: Small volume ascites. No free air. Bones: No acute osseous abnormality. Moderate osteoarthrosis of the hips. IMPRESSION: 1. No acute pulmonary embolism. 2. New small left greater than right pleural effusions and mild pulmonary edema. 3. Unchanged aortic valve calcifications and thickening, correlate for aortic stenosis. 4. Unchanged 11 mm pulmonary nodule along the left major fissure. 5. Findings of cirrhosis and portal hypertension. Small volume ascites. Large portosystemic collateral vessels in the abdomen. Small esophageal and paraesophageal varices. 6. Prominent appearance of the ovaries for age. Correlation with pelvic ultrasound could be made as indicated. Electronically signed by: Ekta Ralph MD (01/13/2021 3:05 PM) [id number] DICTATED AND SIGNED BY: EKTA RALPH MD DATE: 01/13/21 1448 CC: WEI VELIZ APRN; GILMA LUCIO ~MTH0 0 Heart Score C/O Chest Pain: No HEART Score for Chest Pain: HEART Score for Chest Pain Response (Comments) Value History Slighlty/Non-Suspicious 0 ECG Nonspecific Repolarizatio 1 Age >45 - < 65 1 Risk Factors 1 or 2 Risk Factors 1 Troponin < Normal Limit 0 Total 3 Risk Factors: Risk Factors: DM, Current or recent (<one month) smoker, HTN, HLP, family history of CAD, obesity. Risk Scores: Risk Factors: DM, Current or recent (<one month) smoker, HTN, HLP, family history of CAD, obesity. Course & Med Decision Making Course & Med Decision Making Pertinent Labs and Imaging studies reviewed. (See chart for details) 65-year-old female, vital signs reviewed, presents emergency department concerning multiple aches and pains, shortness of breath and abdominal discomfort. Physical examination was unremarkable however patient did have mild swelling to the left ankle. An extensive chart review noted patient has a history of a recent fall, has been seen in the emergency department for contusions of the chest abdomen right knee left shoulder bilateral ankles, has a history of pleural effusions, atelectasis, cirrhosis of the liver, splenomegaly, stress incontinence, hypertension, dysrhythmias, and LVH. Patient only home medication managed by ULICES Weiss is [place]. Patient is asking for a stronger medication than [place], there is a drug-seeking component to her physical presentation and complaint. Related to patient's history, a cardiopulmonary work-up will be initiated in the emergency department to include CT angio chest abdomen pelvis, EKG, cardiac enzymes, CBC, BMP, D-dimer, proBNP, urinalysis assay, urine drug screen. Patient's total bilirubin elevated at 3.2 today, reevaluation of the patient, patient is not jaundiced, skin patient sclera is not jaundiced. Patient is EKG was unchanged from EKG performed on 11/11/2020. Cardiac enzymes are negative, patient's pro NT BNP has elevated from 592 from November of 2020 to 1006 today, patient's total bilirubin has elevated from 1.6 in November 2020 2 3.2 today. Also noted during chart review previous ED provider performed hepatitis panel on December 202020, patient's hep C IgG reactive A positive. This correlates with cirrhotic liver findings of CT abdomen and elevated total bilirubin. It is uncertain if patient has followed up with primary care related to this. ED plan, will discharge to home, with strict follow-up with primary care regarding CT findings, bilirubin findings, hepatitis panel findings. We will also have patient follow-up with primary care for ongoing chronic pain management. Will David wrap left ankle. Reviewed CT imaging from today with previous CT imaging, no significant changes were reported. X-ray of ankle was negative for acute fracture process. Discussed with patient abnormal lab findings and abnormal CT findings, patient gave verbal understanding of discharge home instructions, follow-up with primary care related to abnormal CT and lab findings, ongoing pain management, return to ER precautions and concerns, patient had no further questions or concerns stating that she is ready to go home, patient was discharged home without incident. Dragon Disclaimer Dragon Disclaimer This electronic medical record was generated, in whole or in part, using a voice recognition dictation system. Departure Departure: Impression: Primary Impression: Left ankle pain Additional Impressions: Liver cirrhosis Total bilirubin, elevated Hepatitis C antibody positive in blood Abnormal CT of the chest Abnormal CT of the abdomen Disposition: HOME / SELF CARE / HOMELESS Condition: GOOD Referrals: GILMA LUCIO (PCP) Additional Instructions: Your evaluated today in the emergency department multiple complaints of aches and pains. Your left ankle was not broken, we have placed an David wrap on your left ankle, use as needed for comfort. We performed a CAT scan of your chest abdomen and pelvis, there were no new changes when compared to your CAT scan that was performed back in November 2020. However, there was concerning findings of liver cirrhosis and pulmonary nodules that I recommend that you follow-up soon with your primary care provider. ULICES Lucio. The previous emergency room provider ordered a hepatitis panel on your blood during your visit back in November 2020, it showed a positive antibody for hepatitis C. Please follow-up with your primary care provider regarding today's ED visit. Please follow-up with your primary care provider for ongoing chronic aches and pains for pain management. Return to the emergency department for worsening symptoms or other concerns. EMERGENCY DEPARTMENT GENERAL DISCHARGE INSTRUCTIONS Thank you for coming to [facility] (ED) today and trusting us with you care. We trust that you had a positivie experience in our Emergency Department. If you wish to speak to the department management, you may call the director at . YOUR FOLLOW UP INSTRUCTIONS ARE FOLLOWS: 1. Do you have a private Doctor? If you do not have a private doctor, please ask for a resource list of physicians or clinics that may be able to assist you with follow up care. 2. The Emergency Physician has interpreted your x-rays. The X-Ray specialist will also review them. If there is a change in the findings, you will be notified in 48 hours when at all possible. 3. A lab test or culture has been done, your results will be reviewed and you will be notified if you need a change in treatment. ADDITIONAL INSTRUCTIONS AND INFORMATION: 1. Your care today has been supervised by a physician who is specially trained in emergency care. Many problems require more than one evaluation for a complete diagnosis and treatment. We recommend that you schedule your follow up appointment as recommended to ensure complete treatment of you illness or injury. If you are unable to obtain follow up care and continue to have a problem, or if your condition worsens, we recommend that you return to the ED. 2. We are not able to safely determine your condition over the phone nor are we able to give sound medical advice over the phone. For these safety reasons, if you call for medical advice we will ask you to come to the ED for further evaluation. 3. If you have any questions regarding these discharge instructions please call the ED at [phone]. SAFETY INFORMATION: In the interest of safety, wellness, and injury prevention; we encourage you to wear your sealbelt, if you smoke; quite smoking, and we encourage family to use a protective helmet for bicycling and other sporting events that present an increased risk for head injury. IF YOUR SYMPTOMS WORSEN OR NEW SYMPTOMS DEVELOP, OR YOU HAVE CONCERNS ABOUT YOUR CONDITION; OR IF YOUR CONDITION WORSENS WHILE YOU ARE WAITING FOR YOUR FOLLOW UP APPOINTMENT; EITHER CONTACT YOUR PRIMARY CARE DOCTOR, THE PHYSICIAN WHOSE NAME AND NUMBER YOU WERE GIVEN, OR RETURN TO THE ED IMMEDIATELY. Problem Qualifiers Primary Impression: Left ankle pain Chronicity: chronic Qualified Codes: M25.572 - Pain in left ankle and joints of left foot; G89.29 - Other chronic pain Additional Impressions: Liver cirrhosis Hepatic cirrhosis type: unspecified hepatic cirrhosis Ascites presence: without ascites Qualified Codes: K74.60 - Unspecified cirrhosis of liver WEI VELIZ APRN Jan 13, 2021 13:54
[2021-01-13 13:59] LABS: CALCIUM 8.4 mg/dL (8.5-10.1); POTASSIUM 3.7 mmol/L (3.5-5.1)
[2021-01-13 14:00] LABS: BARBITURATES NEG (NEG); BENZODIAZEPINES NEG (NEG); CANNABINOIDS POS (NEG); COCAINE NEG (NEG); METHADONE NEG (NEG); OPIATES NEG (NEG); PHENCYCLIDINE NEG (NEG)
[2021-01-13 14:07] LABS: AMPHETAMINE/METHAMPHETAMINE NEG (NEG)
[2021-01-13 14:11] LABS: ALBUMIN 3.3 g/dL (3.4-5.0); ALBUMIN/GLOBULIN RATIO 0.6 (1.0-1.7); TOTAL BILIRUBIN 3.2 mg/dL (0.2-1.0); TOTAL PROTEIN 8.6 g/dL (6.4-8.2)
[2021-01-13] MEDS ORDERED: IOHEXOL 350 MG/ML 100 ML VIAL. IV ONE (14:15)
[2021-01-13 14:24] LABS: BILIRUBIN,URINE SMALL (NEG); CLARITY,URINE CLEAR; COLOR,URINE AMBER; GLUCOSE,URINE 100 mg/dL (NEG)
[2021-01-13 14:26] LABS: BACTERIA,URINE 0 /HPF (0-FEW); NITRITE,URINE NEG (NEG); UROBILINOGEN,URINE >=8.0 mg/dL (0.2 mg/dL); WBC,URINE 0 /HPF (0-4)
[2021-01-13 14:55] LABS: PLT ESTIMATE DECREASED (ADEQUATE)
[2021-01-13] MEDS ORDERED: MORPHINE SULFATE 4 MG/ML DISP.SYRIN. IV ONE ×2 (15:00→15:30)
--- NOTE | 2021-01-13 15:08 | RAD ---
EXAM: CT CHEST WITH CONTRAST - PULMONARY ANGIOGRAM CT ABDOMEN AND PELVIS WITH CONTRAST INDICATION: Abdominal pain with shortness of breath. COMPARISON: CTA chest 12/20/2020 TECHNIQUE: Helical CT of the chest abdomen, and pelvis performed after the administration of 60 mm O mnipaque [address] of the chest was timed for angiographic evaluation of the pulmo nary arteries per PE protocol. Coronal and sagittal 3D MIP reformations were obtained of the chest. Sagittal and coronal reformats were obtained of the abdomen and pelvis. One or more of the following individualized dose reduction techniques were utilized for this examinat ion: 1. Automated exposure control 2. Adjustment of the mA and/or kV according to patient size 3. Use of iterative reconstruction technique. FINDINGS: CHEST: Pulmonary Arteries: Contrast bolus is adequate. There is no acute pulmonary embolism. Heart/Systemic Vasculature: Heart is normal in size. No pericardial effusion. There are aortic valve calcifications and thickening. Mediastinum and han: There are small mediastinal and hilar lymph nodes. Mild diffuse esophageal wall thickening.. Lungs and pleura: Unchanged 11 mm pulmonary nodule along the left major fissure (image 52 series 4). There is mild airway wall thickening and interlobular septal thickening throughout the lungs. Small l eft greater than right pleural effusions and bibasilar atelectasis. Neck/Axilla/Body Wall: There is a 9 mm hypodense lesion in the left thyroid lobe. There are numerous small left axillary lymph nodes, unchanged. Bones: No acute osseous abnormality. ABDOMEN AND PELVIS: Liver: Nodular contour of the liver. Portal veins are enlarged. The umbilical vein is recanalized the re is a large collateral vessel in the anterior abdomen extending to the left lower quadrant. There a re esophageal and paraesophageal varices. Gallbladder/Biliary Tree: Gallbladder is not visualized. Bile ducts are normal. Pancreas: Unremarkable. Spleen: Spleen is enlarged measuring 17 cm in CC length. Adrenal Glands: Normal. Kidneys/Ureters/Bladder: Kidneys are normal in size and enhance symmetrically. There is mass effect o n the left kidney from the enlarged spleen. There is a 1.4 cm simple cyst in the inferior left renal pole. No hydronephrosis. Ureters and bladder are unremarkable. Reproductive Organs: Uterus is surgically absent. The ovaries are prominent. Stomach, small bowel, and colon: The stomach is normal. There is no small bowel obstruction. Colon is unremarkable. Vasculature: Abdominal aorta is normal in caliber. Lymph Nodes: No lymphadenopathy. Peritoneum and retroperitoneum: Small volume ascites. No free air. Bones: No acute osseous abnormality. Moderate osteoarthrosis of the hips. IMPRESSION: 1. No acute pulmonary embolism. 2. New small left greater than right pleural effusions and mild pulmonary edema. 3. Unchanged aortic valve calcifications and thickening, correlate for aortic stenosis. 4. Unchanged 11 mm pulmonary nodule along the left major fissure. 5. Findings of cirrhosis and portal hypertension. Small volume ascites. Large portosystemic collater al vessels in the abdomen. Small esophageal and paraesophageal varices. 6. Prominent appearance of the ovaries for age. Correlation with pelvic ultrasound could be made as indicated. Electronically signed by: Katy Ralph MD (01/13/2021 3:05 PM) [id number]
== END 2021-01-13 16:40 | disposition home or self-care (01) ==
LOC: ER 12:42
DX: M25.572 Pain in left ankle and joints of left foot (principal); K74.60 Unspecified cirrhosis of liver; B19.20 Unspecified viral hepatitis C without hepatic coma; R93.1 Abnormal findings on diagnostic imaging of heart and coronary circulation; R93.5 Abnormal findings on diagnostic imaging of other abdominal regions, including retroperitoneum; E80.7 Disorder of bilirubin metabolism, unspecified; R10.31 Right lower quadrant pain; M25.512 Pain in left shoulder; M25.552 Pain in left hip; R10.32 Left lower quadrant pain; M54.5 Low back pain; F41.9 Anxiety disorder, unspecified; M19.90 Unspecified osteoarthritis, unspecified site; I25.10 Atherosclerotic heart disease of native coronary artery without angina pectoris; I10 Essential (primary) hypertension; I25.2 Old myocardial infarction
CPT/HCPCS: 36415; 71275; 73610; 74177; 80053; 80307; 81001; 83690; 83880; 84484; 85025; 85379; 93005; 96374; 96376; 99284; J2270; Q9967